=== PATIENT | female | born 1950 | race African-American/Black ===

== ENCOUNTER 2017-02-13 09:38 | Day surgery (SDC) | payer MEDICARE, OTHER ==
[~2017-02-13 09:38] MED LIST: BUPIVACAINE HCL 0.75% INJ/PF (7.5 MG/1 ML) 10 ML SDV OS PRN; CHONDR SU A NA/HYALUR INTRAOC KIT (SURGICARE) ONE; EPINEPHRINE INJ/PF 1 MG/1 ML AMPULE ONE; KETOROLAC TROMETHAMINE 0.45% 4 DROP/0.4 ML DROPERETTE OS PRN; LIDOCAINE 4% INJ/PF (40 MG/ML) 5 ML AMPUL OS PRN; MIDAZOLAM 2 MG/2 ML INJ ONE
[2017-02-13] MEDS: TETRACAINE HCL 0.5% OPH SOLN 0.6 ML DROPERETTE OS PRN ×2 (09:52→10:23)
[2017-02-13] MEDS: CYCLOPENTOLATE 0.2%/PHENYLEPHRINE 1% OPH SOLN 2 ML OS PRN ×3 (09:53→10:22)
[2017-02-13] MEDS: TROPICAMIDE 1% OPH SOLN 3 ML OS PRN ×3 (09:53→10:22)
[2017-02-13] MEDS: BESIFLOXACIN HCL 0.6% OPH SUSP 5 ML BOTTLE OS PRN ×3 (09:54→10:56)
--- NOTE | 2017-02-13 11:15 | [facility] OPERATIVE REPORT E ---
[facility] Operative Report NAME: ENDY APODACA AGE: 66Y DATE OF SURGERY: 02/13/2017 ROOM: PREOPERATIVE DIAGNOSIS: Cataract, left eye. POSTOPERATIVE DIAGNOSIS: Cataract, left eye. PROCEDURE PERFORMED: Phacoemulsification with posterior chamber intraocular lens, left eye. SURGEON: FRANCIE MEREDITH M.D. ANESTHESIA: Topical with MAC. INDICATIONS FOR SURGERY: Difficulty reading captions on TV, glare with night driving. Best corrected visual acuity 20/30. PROCEDURE: The patient was brought to the Operating Room and placed on the operative table. Following tetracaine drops, topical anesthesia was administered. This consisted of instrument wipe pledgets soaked in a solution of 4% Xylocaine mixed with 0.75% Marcaine in a 1:2 ratio. A 2 x 1 cm pledget was placed in the superior fornix. A 1 x 1 cm pledget was placed in the inferior fornix. The eye was patched shut for 5 minutes. The patch was removed. The eye was sterilely prepped and draped in the usual manner. Lid speculum was placed in the eye. The pledgets were removed. 4-0 black silk sutures were placed around the superior and the inferior rectus muscles to be used as traction. A conjunctival peritomy was made at the 10 o'clock position. Hemostasis was obtained with bipolar cautery. A posterior limbal groove was created using a crescent knife and dissected anteriorly towards the cornea. A sharp point blade was used to create a paracentesis site at the 2 o'clock position. A 2.4 mm keratome was used to enter the anterior chamber through the groove. Viscoelastic was injected into the anterior chamber. An anterior capsulotomy was performed using Utrata forceps in a capsulorrhexis fashion. Hydrodissection and hydrodelineation were performed. Phacoemulsification was performed in fmgcfo-acb-nqmdpei technique. A total of 3.54 CDE phaco time was used. Following this, the I/A unit was used to remove residual cortex. Viscoelastic was injected into the capsular bag. Intraocular lens model SN60WF, 25.0 diopters, serial number [id number] was placed in the capsular bag. The I/A unit was used to remove residual viscoelastic. The wound was seen to be watertight under high and low pressure, and no sutures were placed. The intraocular lens was well centered. The pressure was adjusted in the eye to normal pressure. The 4-0 black silk sutures and lid speculum were removed. The eye was shielded after Besivance drops were placed. The patient tolerated the procedure well and was sent to the Recovery Room in good condition. DICTATING PHYSICIAN: FRANCIE MEREDITH M.D. [id number] PHY#: [id number] ID: [id number] JOB#: [id number] ACCT: [id number] cc:FRANCIE MEREDITH M.D. >
[2017-02-13] MEDS ORDERED: KETOROLAC TROMETHAMINE 0.45% 4 DROP/0.4 ML DROPERETTE OS ONE (11:17)
--- NOTE | 2017-02-13 11:18 | [facility] DISCHARGE SUMMARY E ---
[facility] Discharge Summary NAME: ENDY APODACA AGE: 66Y ADMITTED: 02/13/2017 DISCHARGED: 02/13/2017 HOSPITAL COURSE: The patient is a 66-year-old lady who underwent uneventful cataract extraction with intraocular lens implant left eye on 02/13/2017. She will be discharged to home. She is instructed to resume preoperative medications, take Tylenol as needed for discomfort, to keep her eye shielded, to use Besivance, Durezol, and Ilevro at 3 p.m. and 8 p.m., and to follow up in my office in 1 day. DICTATING PHYSICIAN: FRANCIE MEREDITH M.D. [id number] PHY#: [id number] ID: [id number] JOB#: [id number] ACCT: [id number] cc:FRANCIE MEREDITH M.D. >
== END 2017-02-13 11:36 | disposition home or self-care (01) ==
LOC: SC 09:38
PROVIDERS: ATTEND Ophthalmology
PROC: 08RK3JZ Replacement of Left Lens with Synthetic Substitute, Percutaneous Approach (ICD-10-PCS; principal; 2017-02-13 11:00)
DX: H25.813 Combined forms of age-related cataract, bilateral (principal); H16.223 Keratoconjunctivitis sicca, not specified as Sjogren's, bilateral; H40.013 Open angle with borderline findings, low risk, bilateral; G51.3 Clonic hemifacial spasm; H52.4 Presbyopia; I10 Essential (primary) hypertension; E78.00 Pure hypercholesterolemia, unspecified; Z88.0 Allergy status to penicillin
CPT/HCPCS: 66984; V2632; J2250; J3490 ×3; A9270; J0171; 142

== ENCOUNTER 2017-03-06 07:39 | Day surgery (SDC) | payer MEDICARE, OTHER ==
[~2017-03-06 07:39] MED LIST changes: -BUPIVACAINE HCL 0.75% INJ/PF (7.5 MG/1 ML) 10 ML SDV OS PRN; -CHONDR SU A NA/HYALUR INTRAOC KIT (SURGICARE) ONE; -EPINEPHRINE INJ/PF 1 MG/1 ML AMPULE ONE; +KETOROLAC TROMETHAMINE 0.45% 4 DROP/0.4 ML DROPERETTE OD PRN; -KETOROLAC TROMETHAMINE 0.45% 4 DROP/0.4 ML DROPERETTE OS PRN; -LIDOCAINE 4% INJ/PF (40 MG/ML) 5 ML AMPUL OS PRN; -MIDAZOLAM 2 MG/2 ML INJ ONE
[2017-03-06] MEDS: TETRACAINE HCL 0.5% OPH SOLN 0.6 ML DROPERETTE OD PRN ×2 (08:04→08:30)
[2017-03-06] MEDS: CYCLOPENTOLATE 0.2%/PHENYLEPHRINE 1% OPH SOLN 2 ML OD PRN ×3 (08:05→08:28)
[2017-03-06] MEDS: TROPICAMIDE 1% OPH SOLN 3 ML OD PRN ×3 (08:05→08:28)
[2017-03-06] MEDS: BESIFLOXACIN HCL 0.6% OPH SUSP 5 ML BOTTLE OD PRN ×4 (08:06→09:09)
[2017-03-06] MEDS ORDERED: MIDAZOLAM 2 MG/2 ML INJ ONE ×2 (08:25)
[2017-03-06] MEDS: LIDOCAINE 4% INJ/PF (40 MG/ML) 5 ML AMPUL OD PRN ×2 (08:43)
[2017-03-06] MEDS: BUPIVACAINE HCL 0.75% INJ/PF (7.5 MG/1 ML) 10 ML SDV OD PRN ×2 (08:43)
[2017-03-06] MEDS: PHENYLEPHRINE/KETOROLAC 1%-0.3% 4 ML VIAL ONE ×2 (08:57)
[2017-03-06] MEDS: CHONDR SU A NA/HYALUR INTRAOC KIT (SURGICARE) ONE ×2 (08:57)
--- NOTE | 2017-03-06 09:24 | [facility] DISCHARGE SUMMARY E ---
[facility] Discharge Summary NAME: ENDY APODACA AGE: 66Y ADMITTED: 03/06/2017 DISCHARGED: 03/06/2017 FINAL DIAGNOSIS: Cataract, right eye. HOSPITAL COURSE: The patient is a 66-year-old who underwent uneventful cataract extraction with intraocular lens implant, right eye, on 03/06/2017. She will be discharged to home. She was instructed to resume preoperative medications, to take Tylenol as needed for discomfort, to keep her eye shielded, to use Besivance, Durezol and Ilevro at 3 p.m. and 8 p.m., and to follow up in my office in 1 day. DICTATING PHYSICIAN: FRANCIE MEREDITH M.D. [id number] Y#: [id number] ID: [id number] JOB#: [id number] ACCT: [id number] cc:FRANCIE MEREDITH M.D. >
--- NOTE | 2017-03-06 09:24 | [facility] OPERATIVE REPORT E ---
[facility] Operative Report NAME: ENDY APODACA AGE: 66Y DATE OF SURGERY: 03/06/2017 ROOM: PREOPERATIVE DIAGNOSIS: Cataract, right eye. POSTOPERATIVE DIAGNOSIS: Cataract, right eye. PROCEDURE PERFORMED: Phacoemulsification with posterior chamber intraocular lens, right eye. SURGEON: FRANCIE MEREDITH M.D. ANESTHESIA: Topical with MAC. INDICATIONS FOR OPERATION: Difficulty reading captions on TV and glare with driving at night. Best corrected visual acuity 20/50. PROCEDURE: The patient was brought to the Operating Room and placed on the operative table. Following tetracaine drops, topical anesthesia was administered. This consisted of instrument wipe pledgets soaked in a solution of 4% Xylocaine mixed with 0.75% Marcaine in a 1:2 ratio. A 2 x 1 cm pledget was placed in the superior fornix. A 1 x 1 cm pledget was placed in the inferior fornix. The eye was patched shut for 5 minutes. The patch was removed. The eye was sterilely prepped and draped in the usual manner. Lid speculum was placed in the eye. The pledgets were removed and 4-0 black silk sutures were placed around the superior and the inferior rectus muscles to be used as traction. A conjunctival peritomy was made at the 10 o'clock position. Hemostasis was obtained with bipolar cautery. A posterior limbal groove was created using a crescent knife and dissected anteriorly towards the cornea. A sharp point blade was used to create a paracentesis site at the 2 o'clock position. A 2.4 mm keratome was used to enter the anterior chamber through the groove. Viscoelastic was injected into the anterior chamber. An anterior capsulotomy was performed using Utrata forceps in a capsulorrhexis fashion. Hydrodissection and hydrodelineation were performed. Phacoemulsification was performed in oxbevt-pwg-omrfpfk technique. A total of 5.10 CDE phaco time was used. Following this, the I/A unit was used to remove residual cortex. Viscoelastic was injected into the capsular bag. Intraocular lens model SN60WF, 24.0 diopters, serial number [id number], was placed in the capsular bag. The I/A unit was used to remove residual viscoelastic. The wound was seen to be watertight under high and low pressure, and no sutures were placed. The intraocular lens was well centered. The pressure was adjusted in the eye to normal pressure. The 4-0 black silk sutures and lid speculum were removed. The eye was shielded after Besivance drops were placed. The patient tolerated the procedure well and was sent to the Recovery Room in good condition. DICTATING PHYSICIAN: FRANCIE MEREDITH M.D. [id number] PHY#: [id number] ID: [id number] JOB#: [id number] ACCT: [id number] cc:FRANCIE MEREDITH M.D. >
== END 2017-03-06 09:50 | disposition home or self-care (01) ==
LOC: SC 07:39
PROVIDERS: ATTEND Ophthalmology
PROC: 08RJ3JZ Replacement of Right Lens with Synthetic Substitute, Percutaneous Approach (ICD-10-PCS; principal; 2017-03-06 09:00)
DX: H25.811 Combined forms of age-related cataract, right eye (principal); Z96.1 Presence of intraocular lens; H16.223 Keratoconjunctivitis sicca, not specified as Sjogren's, bilateral; I10 Essential (primary) hypertension; Z79.899 Other long term (current) drug therapy; Z88.0 Allergy status to penicillin
CPT/HCPCS: 66984; V2632; J2250; J3490 ×3; A9270; C9447; 142

== ENCOUNTER 2017-03-20 08:46 | Emergency (ER) | payer MEDICARE, OTHER ==
[2017-03-20 08:52] VITALS: BP 148/95
[2017-03-20] MEDS ORDERED: TETRACAINE HCL 0.5% OPH SOLN 2 ML OS ONE (09:31)
--- NOTE | 2017-03-20 09:32 | ER Document Report ---
ED General - General Chief Complaint: Eye Problem Stated Complaint: EYE IRRITATION Time Seen by Provider: 03/20/17 09:26 Mode of Arrival: Ambulatory Information source: Patient Notes: 66-year-old female history of cataract surgery performed 1 month prior presents with complaints of redness drainage from the left eye. Patient notes symptoms started 2 days ago denies any pain., Denies any visual disturbance Patient denies any contact use TRAVEL OUTSIDE OF THE [place] IN LAST 30 DAYS: No - HPI Onset: Other - 3 days Onset/Duration: Persistent Quality of pain: No pain Severity: Mild Pain Level: Denies Associated symptoms: Other Exacerbated by: Denies Relieved by: Denies Similar symptoms previously: No Recently seen / treated by doctor: Yes - Related Data Allergies/Adverse Reactions: amoxicillin [Amoxicillin] Allergy (Verified 03/20/17 08:48) HEADACHE Past Medical History - Social History Smoking Status: Never Smoker Cigarette use (# per day): No Chew tobacco use (# tins/day): No Smoking Education Provided: No Family History: Reviewed & Not Pertinent - Past Medical History Cardiac Medical History: Reports: Hx Hypertension Denies: Hx Coronary Artery Disease, Hx Heart Attack Pulmonary Medical History: Denies: Hx Asthma, Hx Bronchitis, Hx COPD, Hx Pneumonia Neurological Medical History: Denies: Hx Cerebrovascular Accident, Hx Seizures GI Medical History: Reports: Hx Ulcer - hx of. Denies: Hx Hepatitis, Hx Hiatal Hernia Musculoskeltal Medical History: Denies Hx Arthritis Infectious Medical History: Denies: Hx Hepatitis Past Surgical History: Denies: Hx Hysterectomy, Hx Mastectomy, Hx Open Heart Surgery, Hx Pacemaker - Immunizations Hx Diphtheria, Pertussis, Tetanus Vaccination: Yes Review of Systems - Review of Systems Notes: REVIEW OF SYSTEMS: CONSTITUTIONAL : Denies fever, chills, or sweats. Denies recent illness. EENT: Admits left eye redness drainage CARDIOVASCULAR: Denies chest pain. Denies palpitations or racing or irregular heart beat. Denies ankle edema. RESPIRATORY: Denies cough, cold, or chest congestion. Denies shortness of breath, difficulty breathing, or wheezing. GASTROINTESTINAL: Denies abdominal pain or distention. Denies nausea, vomiting , or diarrhea. Denies blood in vomitus, stools, or per rectum. Denies black, tarry stools. Denies constipation. GENITOURINARY: Denies difficulty urinating, painful urination, burning, frequency, blood in urine, or discharge. FEMALE GENITOURINARY: Denies vaginal bleeding, heavy or abnormal periods, irregular periods. Denies vaginal discharge or odor. MUSCULOSKELETAL: Denies back or neck pain or stiffness. Denies joint pain or swelling. SKIN: Denies rash, lesions or sores. HEMATOLOGIC : Denies easy bruising or bleeding. LYMPHATIC: Denies swollen, enlarged glands. NEUROLOGICAL: Denies confusion or altered mental status. Denies passing out or loss of consciousness. Denies dizziness or lightheadedness. Denies headache. Denies weakness or paralysis or loss of use of either side. Denies problems with gait or speech. Denies sensory loss, numbness, or tingling. Denies seizures. PSYCHIATRIC: Denies anxiety or stress. Denies depression, suicidal ideation, or homicidal ideation. ALL OTHER SYSTEMS REVIEWED AND NEGATIVE. PHYSICAL EXAMINATION: GENERAL: Well-appearing, well-nourished and in no acute distress. HEAD: Atraumatic, normocephalic. EYES: Pupils equal round and reactive to light, extraocular movements intact, right conjunctive is normal in appearance left is injected clear drainage noted is not tender to palpation, pressure right eye 20 pressure left eye 10 ENT: Nares patent, oropharynx clear without exudates. Moist mucous membranes. NECK: Normal range of motion, supple without lymphadenopathy LUNGS: Breath sounds clear to auscultation bilaterally and equal. No wheezes rales or rhonchi. HEART: Regular rate and rhythm without murmurs ABDOMEN: Soft, nontender, nondistended abdomen. No guarding, no rebound. No masses appreciated. Female : deferred Musculoskeletal: Normal range of motion, no pitting or edema. No cyanosis. NEUROLOGICAL: Cranial nerves grossly intact. Normal speech, normal gait. Normal sensory, motor exams PSYCH: Normal mood, normal affect. SKIN: Warm, Dry, normal turgor, no rashes or lesions noted. Dictation was performed using [employer] voice recognition software Physical Exam - Vital signs Vitals: Temp Pulse Resp BP Pulse Ox 97.5 F 85 18 148/95 H 98 03/20/17 08:52 03/20/17 08:52 03/20/17 08:52 03/20/17 08:52 03/20/17 08:52 Course - Re-evaluation Re-evalutation: 03/20/17 09:49 Patient's presentation complaints is consistent with viral conjunctivitis however I will cover with conservatively antibiotics as I am unable to clearly diagnose given her presentation After performing a Medical Screening Examination, I estimate there is LOW risk for a RETAINED CORNEAL or LID FOREIGN BODY, DEEP SPACE INFECTION (e.g., ORBITAL CELLULITIS OR ABSCESS), ACUTE GLAUCOMA, PENETRATING GLOBE INJURY, RETINAL DETACHMENT, or MENINGITIS thus I consider the discharge disposition reasonable. I have reevaluated this patient multiple times and no significant life threatening changes are noted. Also, there is no evidence or peritonitis, sepsis , or toxicity. The patient and I have discussed the diagnosis and risks, and we agree with discharging home with outpatient follow-up with the understanding that symptoms and presentations can change. We also discussed returning to the Emergency Department immediately if new or worsening symptoms occur. We have discussed the symptoms which are most concerning (e.g., changing or worsening pain, vision changes, neck stiffness or fever) that necessitate immediate return. - Vital Signs Vital signs: Temp Pulse Resp BP Pulse Ox 97.5 F 85 18 148/95 H 98 03/20/17 08:52 03/20/17 08:52 03/20/17 08:52 03/20/17 08:52 03/20/17 08:52 Discharge - Discharge Clinical Impression: Conjunctivitis Qualifiers: Conjunctivitis type: acute Acute conjunctivitis type: viral Laterality: left Qualified Code(s): B30.9 - Viral conjunctivitis, unspecified Condition: Stable Disposition: HOME, SELF-CARE Instructions: Conjunctivitis ([facility]) Additional Instructions: Please follow-up with your employee counselor for reevaluation or return immediately if there are any worsening symptoms or any other concerns Prescriptions: Ciprofloxacin HCl [Ciloxan 0.3% Oph Soln 2.5 ml] 2 drop OS Q2 #1 bottle
== END 2017-03-20 09:55 | disposition home or self-care (01) ==
LOC: ER 08:46
DX: B30.9 Viral conjunctivitis, unspecified (principal); I10 Essential (primary) hypertension; Z88.0 Allergy status to penicillin
CPT/HCPCS: 99283

== ENCOUNTER 2017-08-29 06:34 | Day surgery (SDC) | payer MEDICARE, OTHER ==
[~2017-08-29 06:34] MED LIST changes: +CEFAZOLIN 1 GM/D5W RTU 1 GM/50 ML RTUPB IV PRN; -KETOROLAC TROMETHAMINE 0.45% 4 DROP/0.4 ML DROPERETTE OD PRN
[2017-08-29] MEDS ORDERED: MIDAZOLAM 2 MG/2 ML INJ ONE (06:57)
[2017-08-29] MEDS ORDERED: FENTANYL CITRATE INJ/PF 100 MCG/2 ML AMPUL ONE (06:57)
[2017-08-29] MEDS ORDERED: PROPOFOL INJ 200 MG/20 ML VIAL IV ONE (06:57)
[2017-08-29] MEDS ORDERED: LIDOCAINE 2% INJ (20 MG/ML) 20 ML MDV ONE (07:03)
[2017-08-29] MEDS ORDERED: BUPIVACAINE HCL 0.5 % INJ/PF 30 ML SDV ONE (07:03)
[2017-08-29] MEDS ORDERED: NORMAL SALINE INJ/PF 0.9% 10 ML SDV ONE (07:06)
[2017-08-29] MEDS ORDERED: POLYMYXIN B SULFATE INJ 500000 UNIT VIAL ONE (07:06)
[2017-08-29] MEDS ORDERED: BACITRACIN INJ 50,000 UNIT VIAL ONE (07:06)
--- NOTE | 2017-08-29 09:39 | [facility] DISCHARGE SUMMARY E ---
[facility] Discharge Summary NAME: ENDY APODACA AGE: 67Y ADMITTED: 08/29/2017 DISCHARGED: 08/29/2017 OPERATIVE PROCEDURE: Tailor bunionectomy with fifth metatarsal chevron osteotomy with internal screw fixation, left foot. PREOPERATIVE DIAGNOSIS: Tailor bunion of the left foot. HOSPITAL COURSE: Patient was admitted into [facility] with complaints of a painful left foot and was taken to the operating room and the above procedure performed. Patient tolerated the surgery and anesthesia well and was taken to the recovery room for further monitoring by the anesthesia department. He was later discharged from [facility] with prescription for Percocet 5 mg/325 mg, Phenergan 25 mg, cephalexin 500 mg. He was given a postoperative surgical shoe and postoperative instructions for rest, ice, and elevation. He was given a postoperative appointment for 5 days. DICTATING PHYSICIAN: CURLY BARGER DPM [id number] PHY#: [id number] ID: [id number] JOB#: [id number] ACCT: [id number] cc:CURLY BARGER DPM > MTDD
--- NOTE | 2017-08-29 12:50 | RADIOLOGY REPORT (SQ) ---
EXAM DESCRIPTION: FOOT LEFT 2 VIEWS; NO CHG FLUORO COMPLETED DATE/TIME: 08/29/2017 12:32 pm; 08/29/2017 12:33 pm REASON FOR STUDY: TAILOR BUNION 5TH TOE LEFT FOOT M20.12 HALLUX VALGUS (ACQUIRED), LEFT FOOT COMPARISON: None. FLUOROSCOPY TIME: 10 seconds. 2 images saved to PACS. TECHNIQUE: Intra-operative images acquired during surgical procedure to evaluate progress. NUMBER OF IMAGES: 2 images. LIMITATIONS: None. FINDINGS: Images of the foot acquired during surgical procedure. IMPRESSION: IMAGE(S) OBTAINED DURING PROCEDURE. COMMENT: Quality ID [id number]: Final reports for procedures using fluoroscopy that document radiation exp osure indices, or exposure time and number of fluorographic images (if radiation exposure indices are not available) Please consult full operative report of the attending physician for description of the procedure. TECHNICAL DOCUMENTATION: JOB ID: [id number] [employer]- All Rights Reserved Reading location - IP/workstation name: [email or web address]
--- NOTE | 2017-08-29 12:50 | RADIOLOGY REPORT (SQ) ---
EXAM DESCRIPTION: FOOT LEFT 2 VIEWS; NO CHG FLUORO COMPLETED DATE/TIME: 08/29/2017 12:32 pm; 08/29/2017 12:33 pm REASON FOR STUDY: TAILOR BUNION 5TH TOE LEFT FOOT M20.12 HALLUX VALGUS (ACQUIRED), LEFT FOOT COMPARISON: None. FLUOROSCOPY TIME: 10 seconds. 2 images saved to PACS. TECHNIQUE: Intra-operative images acquired during surgical procedure to evaluate progress. NUMBER OF IMAGES: 2 images. LIMITATIONS: None. FINDINGS: Images of the foot acquired during surgical procedure. IMPRESSION: IMAGE(S) OBTAINED DURING PROCEDURE. COMMENT: Quality ID [id number]: Final reports for procedures using fluoroscopy that document radiation exp osure indices, or exposure time and number of fluorographic images (if radiation exposure indices are not available) Please consult full operative report of the attending physician for description of the procedure. TECHNICAL DOCUMENTATION: JOB ID: [id number] [employer]- All Rights Reserved Reading location - IP/workstation name: [email or web address]
--- NOTE | 2017-08-30 13:29 | [facility] OPERATIVE REPORT E ---
[facility] Operative Report NAME: ENDY APODACA AGE: 67Y DATE OF SURGERY: 08/29/2017 ROOM: SURGEON: CURLY BARGER DPM DIETARY WORKER: RENETTA NEGRETE DPM PREOPERATIVE DIAGNOSIS: Tailor's bunion of the left foot. POSTOPERATIVE DIAGNOSIS: Tailor's bunion of the left foot. PROCEDURE: Tailor's bunionectomy with fifth metatarsal osteotomy with internal screw fixation left foot. DESCRIPTION OF PROCEDURE: On 08/29/2017, the patient was admitted to [facility] and was taken to the operating room where following induction of IV sedation and regional local anesthesia, the patient's left foot and leg were prepped and draped in the usual sterile manner. Tourniquet was placed on the proximal ankle malleoli. Esmarch was applied. Tourniquet was inflated to the level of 250 mmHg. Esmarch was removed. Sterile draping was completed and the following procedure performed. Attention was directed to the dorsal aspect of the fifth metatarsophalangeal joint left foot where a 2 cm curvilinear incision was placed directly over the fifth metatarsal extending across the fifth metatarsophalangeal joint. The incision was deep and through subcutaneous tissue and superficial fascia. Operating vessels were clamped, ligated, and bovied as necessary for hemostasis and further deep and via sharp and blunt dissection down to the level of the capsule periosteal structures where sharply incised in a similar fashion through the skin incision and retracted medially and laterally for preservation, thus bringing in view the hypertrophied lateral aspect of the fifth metatarsal head, which was then osteotomized dorsal plantar removing approximately 1 mm wedge of bone and creating a flattened surface for osteotomy. At time, a chevron-type osteotomy was placed from lateral to medial. The head of the fifth metatarsal joint was transposed to the more medial position and temporarily fixated to the fifth metatarsal shaft. Fluoroscopic studies were obtained to verify correction. At that time, two 0.035 temporary K-wires were inserted for fixation and 2.3, 16 mm cannulated screws were then inserted from dorsal distal to plantar proximal for fixation. The placement of screws and fixation of the osteotomy were verified under fluoroscopic studies and noted to be in excellent anatomical location and the osteotomy was noted to be stably fixated. It should be noted that the proximal screw while being inserted created a stress riser and had a slight fracture in the proximal segment of the dorsal wing. The fragments were not displaced on the proximal most portion it was felt that the fragments should heal without incident. At that time, redundent bone on the lateral aspect of the fifth metatarsal shaft was then osteotomized. All sharp osseous edges were rasped smooth. The area was flushed with copious amounts of sterile antibiotic solution and inspected for remaining soft tissue and osseous debris with none being noted. DBX bone putty was then inserted into the fracture on the dorsal aspect of the metatarsal and the proximal dorsal wing. At that time, the capsular periosteal structure was coapted and maintained with simple interrupted suture of 0 Vicryl and subcutaneous tissue was coapted and maintained with simple interrupted suture of 4-0 Vicryl. The long flexor tendon was partially tenotomized proximal medial and approximately 1 cm distal on the lateral one half of the tendon just to allow for some relaxation of the tendon. The skin incision was then coapted and maintained utilizing running subcuticular suture of 5-0 Vicryl. Steri-Strips were applied. Sterile dressing consisting of Nate silk, 4 x 4's, Sreekanth, Kerlix, and Coflex were applied to the patient's left foot. Tourniquet was rapidly deflated. Capillary filling time was noted to be instantaneous to all digits. The patient appeared to tolerate the surgery and anesthesia well and was later taken to the recovery room where further monitored by the Anesthesia Department. DICTATING PHYSICIAN: CURLY BARGER DPM [id number] PHY#: [id number] ID: [id number] JOB#: [id number] ACCT: [id number] cc:CURLY BARGER DPM > MTDD
== END 2017-08-29 10:20 | disposition home or self-care (01) ==
LOC: SC 06:34
PROVIDERS: ATTEND Preventive Medicine Undersea and Hyperbaric Medicine
DX: M21.621 Bunionette of right foot (principal); I10 Essential (primary) hypertension; E78.00 Pure hypercholesterolemia, unspecified; Z88.0 Allergy status to penicillin; Z79.899 Other long term (current) drug therapy
CPT/HCPCS: 73620; 28110; C1713; C1769; C9359; J2250; J3490 ×5; J0690; J2704; 01480; J3010